=== PATIENT | male | born 1995 | race Caucasian/White ===

== ENCOUNTER 2018-02-20 15:26 | Emergency (ER) | payer OTHER, SELFPAY ==
[2018-02-20 15:34] VITALS: BP 129/65; PULSE 73; RESP 14; TEMP 36.6; O2SAT 100
--- NOTE | 2018-02-20 16:48 | ED_ITS ---
HPI - Extremity Problem <SLADE Thornton - Last Filed: 02/20/18 20:24> General Chief complaint: Extremity Problem,Nontraumatic Stated complaint: RT FOOT INJURY Time Seen by Provider: 02/20/18 16:48 Source: patient Mode of arrival: ambulatory Limitations: no limitations History of Present Illness HPI Narrative: 22-year-old healthy male that is a everyday smoker here for complaint of small area of swelling and discomfort to his right dorsal foot for the last couple of weeks. Denies any trauma to the area. He states he is ambulatory he states it causes discomfort only periodically if it is bumped to that area or if it has pressure applied to it. He denies any complaint of pain at this timeframe. He denies any other concerns or complaints. Related Data Home Medications Medication Instructions Recorded Confirmed No Known Home Medications 02/20/18 02/20/18 Allergies Allergy/AdvReac Type Severity Reaction Status Date / Time No Known Drug Allergies Allergy Verified 02/20/18 15:36 Review of Systems <SLADE Thornton - Last Filed: 02/20/18 20:24> Eyes Denies change in vision, Denies eye discharge, Denies irritation and Denies loss of vision ENT Ears, Nose, Mouth, and Throat: Denies change in voice, Denies neck pain and Denies sore throat Cardiovascular Denies chest pain, Denies irregular heart rhythm, Denies lightheadedness, Denies palpitations, Denies dyspnea, Denies dyspnea on exertion and Denies orthopnea Respiratory Denies cough, Denies dyspnea, Denies dyspnea on exertion and Denies wheezing Gastrointestinal Gastrointestinal: Denies abdominal pain, Denies change in bowel habits, Denies diarrhea, Denies nausea and Denies vomiting Genitourinary Denies hematuria, Denies flank pain, Denies urinary incontinence and Denies urinary urgency Musculoskeletal Denies neck pain Comments: Swelling to the dorsal aspect of right foot Neurologic Denies confusion and Denies loss of vision Psychiatric Denies anxiety, Denies confusion, Denies depression, Denies homicidal ideation and Denies suicidal ideation Endocrine Denies palpitations Allergic/Immunologic Denies wheezing Exam <SLADE Thornton - Last Filed: 02/20/18 20:24> Initial Vital Signs Initial Vital Signs: Vital Signs Temperature 97.8 F 02/20/18 15:34 Pulse Rate 73 02/20/18 15:34 Respiratory Rate 14 02/20/18 15:34 Blood Pressure 129/65 02/20/18 15:34 Pulse Oximetry 100 02/20/18 15:34 Const General: cooperative and well developed Nutritional Appearance: well nourished Orientation: alert, awake, oriented x3 and not confused [facility] Mouth: oral mucosae normal and moist mucous membranes Eyes General: appearance normal, both eyes and all related structures Eyelids: eyelids normal Conjunctivae: conjunctivae normal Sclera: sclerae normal Pupils: PERRL EOM: EOM intact bilaterally Resp Effort & Inspection: normal respiratory effort, able to speak in complete sentences, no respiratory distress and no use of accessory muscles Auscultation: clear to auscultation bilaterally, no rales, no rhonchi and no wheezes Cardio Rate: regular rate Rhythm: regular rhythm Heart Sounds: no click, no gallops, no murmurs and no rubs Pulses: normal peripheral pulses Skin General: no rashes or lesions noted, No jaundice and No petechiae Neuro General: alert, oriented x3, gait normal and no focal motor deficits Speech: speech normal Extrem Other: Small 2 cm raised area to the 1st metatarsal area of the right foot. No signs of trauma. No open lesions. No erythema no ecchymosis. Distal sensation is intact. Full range of motion. Distal pulses intact <DO Crystal Naranjo Last Filed: 02/21/18 05:43> Initial Vital Signs Initial Vital Signs: Vital Signs Temperature 97.8 F 02/20/18 15:34 Pulse Rate 73 02/20/18 15:34 Respiratory Rate 14 02/20/18 15:34 Blood Pressure 129/65 02/20/18 15:34 Pulse Oximetry 100 02/20/18 15:34 Course <SLADE Thornton - Last Filed: 02/20/18 20:24> Orders Ordered: ED Orders 02/20/18 18:08 XR foot RT min 3V Stat Vital Signs - 8 hr 02/20/18 15:34 Temperature 97.8 F Pulse Rate 73 Respiratory Rate 14 Blood Pressure 129/65 Pulse Oximetry 100 <DO Crystal Naranjo Last Filed: 02/21/18 05:43> Orders Ordered: ED Orders 02/20/18 18:08 XR foot RT min 3V Stat Vital Signs - 8 hr 02/20/18 15:34 Temperature 97.8 F Pulse Rate 73 Respiratory Rate 14 Blood Pressure 129/65 Pulse Oximetry 100 MDM - Extremity (Nontraumatic) <SLADE Thornton - Last Filed: 02/20/18 20:24> Imaging Data Right foot : Radiologist's impression: Patient: Pato Werner MR#: [id number] : 1995 Acct:[id number] Age/Sex: 22 / M Date of Service: 02/20/18 Loc: ED Accession Number: [id number] Procedure: XR foot RT min 3V Ordering Provider: Chavo Morales PROCEDURE: XR FOOT RT MIN 3V INDICATIONS: Swelling dorsal aspect right foot over 1st metatarsal TECHNIQUE: 3 views of the foot were acquired. COMPARISON: None. FINDINGS: Bones: No fractures or dislocations. No suspicious bony lesions. No osseous erosive changes are periosteal reaction. Soft tissues: No tibiotalar joint effusion. Achilles tendon appears normal. IMPRESSION: No margy evidence of osteomyelitis. Plain film radiographs can be insensitive to osteomyelitis during the initial 15 days of the disease process. If there is clinical concern for osteomyelitis, then three-phase nuclear medicine bone scan is warranted. Dictated by: Maricel Crabtree MD, PhD on 02/20/2018 at 18:45 Approved by: Maricel Crabtree MD, PhD on 02/20/2018 at 18:46 [facility] Narrative Medical decision making narrative: X-ray the right foot was obtained was negative for any acute findings. Signs and symptoms presents as sprain to the right foot. Use [id number] Tylenol or Motrin as needed for any discomfort. Follow up with her primary care provider next week for re- evaluation. For any worsening symptoms return to the emergency room. Recommend wearing safety shoes while at work with steel toe. Discharge Plan Departure Patient Disposition: Home Clinical Impression: Sprain of foot, right Discharge Date/Time: 02/20/18 19:39 Interventions: ED Discharge Assessment Last Done: 02/20/18 19:36 Instructions: DI for Foot Pain Activity Restrictions/Additional Instructions: X-ray the right foot was obtained was negative for any acute fractures or findings. Signs and symptoms presents as a sprain to the right foot. Use over- the-counter Tylenol or Motrin as needed for any discomfort. Follow up with her primary care fracture next week for re-evaluation. For any worsening symptoms return to the emergency room. Recommend wearing a safety issues was still toe while Prescriptions: No Action No Known Home Medications RF: 0 Referrals: [facility] [Provider Group] Stand Alone Forms: Work/School Restrictions <Rodney Dominguez DO - Last Filed: 02/21/18 05:43> [facility] ED Attending Wilbert Attestation: I was immediately available in the department for consultation. Documentation has been reviewed. I agree with assessment and plan.
--- NOTE | 2018-02-20 17:33 | PC.NURSE ---
Pt has some erythema on the dorsal surface of the right foot. He states it flares up when he bumps it. No known recent injury, although he did drop a pallet on it one month ago. States weight bearing makes it much worse.
--- NOTE | 2018-02-20 18:08 | DI.RAD.S_ITS ---
PROCEDURE: XR FOOT RT MIN 3V INDICATIONS: Swelling dorsal aspect right foot over 1st metatarsal TECHNIQUE: 3 views of the foot were acquired. COMPARISON: None. FINDINGS: Bones: No fractures or dislocations. No suspicious bony lesions. No osseous erosive changes are periosteal reaction. Soft tissues: No tibiotalar joint effusion. Achilles tendon appears normal. IMPRESSION: No margy evidence of osteomyelitis. Plain film radiographs can be insensitive to osteomyelitis during the initial 15 days of the disease process. If there is clinical concern for osteomyelitis, then three-phase nuclear medicine bone scan is warranted. Dictated by: Maricel Crabtree MD, PhD on 02/20/2018 at 18:45 Approved by: Maricel Crabtree MD, PhD on 02/20/2018 at 18:46
[2018-02-20 19:15] VITALS: BP 118/69; PULSE 54; RESP 16; TEMP 36.5; O2SAT 100
== END 2018-02-20 19:39 | disposition home or self-care (01) ==
PROVIDERS: Emergency Provider Nurse Practitioner Family
DX: S93.601A Unspecified sprain of right foot, initial encounter (principal); F17.200 Nicotine dependence, unspecified, uncomplicated
CPT/HCPCS: 73630; 99282; 99283